=== PATIENT | male | born 1965 | race Caucasian/White ===

== ENCOUNTER 2020-08-10 16:39 | Emergency (ER) | payer OTHER ==
[~2020-08-10] VITALS: Ht 188 cm; Wt 95.2 kg
[~2020-08-10 16:39] MED LIST: ALPR1TAB2 PO; BUPR1FIL3 PO
--- NOTE | 2020-08-10 16:52 | NUR ---
PT C/O NAUSEA, VOMITING, POOR SLEEP, AND DIARRHEA X 1.5 WEEKS. PT STATES HE ALSO HAS BODY ACHES AND CHILLS. DENIES FEVER. PT'S SPOUSE STATES HE HAS AN OCCASIONAL COUGH THROUGHOUT THE DAY. PT HAS BEEN ABLE TO KEEP DOWN MINIMAL FOOD AND LIQUIDS.
[2020-08-10] MEDS ORDERED: MAALOX/HYOSCYAMINE/LIDOCAINE 45 ML BTL PO ONE (17:30)
[2020-08-10] MEDS ORDERED: SODIUM CHLORIDE 0.9% 1,000ML IVBOLUS ONE (17:30)
[2020-08-10] MEDS ORDERED: SODIUM CHLORIDE FLUSH 10ML SYR IVF ONE (17:30)
[2020-08-10] MEDS ORDERED: ONDANSETRON 2MG/ML, 2ML IVPush ONE (17:30)
[2020-08-10 17:43] LABS: BASOPHILS % (AUTO) 1 % (0-1); EOSINOPHILS % (AUTO) 1 % (1-7); LYMPHOCYTES % (AUTO) 16 % (22-44); MEAN CORPUSCULAR HEMOGLOBIN 30.8 pg (27.5-34.5); MEAN CORPUSCULAR HGB CONC 33.2 g/dL (33.2-36.2); MONOCYTES % (AUTO) 9 % (2-9); NEUTROPHILS % (AUTO) 74 % (42-75); PLATELET COUNT 223 x10^3/uL (130-400); RED BLOOD COUNT 5.37 x10^6/uL (4.38-5.82)
[2020-08-10 17:52] LABS: ALBUMIN 3.8 g/dL (3.4-5.0); ANION GAP 3 mmol/L (5-15); CALCIUM 8.6 mg/dL (8.5-10.1); CHLORIDE 106 mmol/L (98-107); MD NO
[2020-08-10 17:56] LABS: ALANINE AMINOTRANSFERASE 29 U/L (12-78); ALKALINE PHOSPHATASE 65 U/L (45-117); BILIRUBIN,TOTAL 0.5 mg/dL (0.2-1.0); CREATININE 1.14 mg/dL (0.7-1.3); TOTAL PROTEIN 7.5 g/dL (6.4-8.2)
--- NOTE | 2020-08-10 18:00 | NUR ---
PT UP TO BATHROOM TO GIVE URINE SAMPLE AND UNABLE TO.
--- NOTE | 2020-08-10 18:07 | NUR ---
OFF FLOOR TO CT
--- NOTE | 2020-08-10 18:25 | NUR ---
PT BACK FROM CT
[2020-08-10] MEDS ORDERED: ONDANSETRON 2MG/ML, 2ML ONE (18:28)
--- NOTE | 2020-08-10 18:37 | NUR ---
PT MEDICATED PER DEC. WAITIN GTO SEE IF PT FEELS RELIEF FROM NAUSEA TO ADMINISTER PO MEDICATION (GI COCKTAIL).
--- NOTE | 2020-08-10 18:53 | NUR ---
REPORT TO CÉSAR PINO
--- NOTE | 2020-08-10 18:54 | NUR ---
received report from ALVAREZ Mario.
--- NOTE | 2020-08-10 19:03 | NUR ---
PO challenge initiated.
[2020-08-10] MEDS ORDERED: MAALOX/HYOSCYAMINE/LIDOCAINE 45 ML BTL ONE (19:20)
[2020-08-10] MEDS ORDERED: MORPHINE SULFATE 4 MG/ML, 1ML ONE (19:35)
--- NOTE | 2020-08-10 19:47 | NUR ---
patient still c/o pain. medicated.
--- NOTE | 2020-08-10 19:51 | NUR ---
urine sent to lab.
[2020-08-10] MEDS ORDERED: MORPHINE SULFATE 4 MG/ML, 1ML IVPush ONE (20:00)
[2020-08-10 20:36] LABS: MICROSCOPIC NOT IND
[2020-08-10 21:07] VITALS: BP 130/85
--- NOTE | 2020-08-10 21:07 | NUR ---
re-evaluation done. patient discharged with prescriptions and instruction. verbalized understanding.
[2020-08-10] MEDS ORDERED: OMNIPAQUE 350 MG/ML, 100ML BOTTLE ONE (23:26)
== END 2020-08-10 21:09 | disposition home or self-care (01) ==
LOC: ED 18:49
DX: K21.00 Gastro-esophageal reflux disease with esophagitis, without bleeding (principal); R11.2 Nausea with vomiting, unspecified
CPT/HCPCS: 36415; 74177; 80053; 81003; 83690; 85025; 96361; 96374; 96375; 99285; J2270; J2405; J7030; Q9967